=== PATIENT | female | born 1990 | race Caucasian/White ===

== ENCOUNTER 2017-10-29 13:55 | Emergency (ER) | payer OTHER ==
[~2017-10-29] VITALS: Ht 162.6 cm; Wt 70.2 kg
[2017-10-29 13:59] VITALS: BP 136/80; PULSE 94; RESP 18; TEMP 98.5; O2SAT 98
[2017-10-29] MEDS ORDERED: IBUPROFEN 600 MG TAB PO ONE (15:00)
[2017-10-29] MEDS ORDERED: ONDANSETRON ODT 4 MG TAB PO ONE (15:00)
--- NOTE | 2017-10-29 15:08 | PD ---
HPI Chief Complaint: Cold / Flu Symptoms Time Seen by Provider: 14:52 Travel History International Travel<30 days: No Contact w/Intl Traveler<30days: No Traveled to known affect area: No History of Present Illness HPI Patient is a 27-year-old female who comes in complaining of cough, body aches, fever. She says she has been sick since last , got worse over the weekend, but she is starting to feel little bit better. She says she is still coughing a lot and has nausea. She denies any vomiting. She denies any abdominal pain. She says she has occasional headaches, but those seem to be improving. She has tried Tylenol Cold and flu as well as [place] without relief of her symptoms. She does report multiple sick contacts. Severity is mild to moderate. [facility]LY [facility] Past Medical History Medical History: Denies Significant Hx ?: Not LMP: 10/17/17 Past Surgical History Surgical History: No Previous Surgery Social History Alcohol Use: Yes (soc) Tobacco Use: Yes (1 ppd) Substance Use: No Allergies-Medications (Allergen,Severity, Reaction): Coded Allergies: Penicillins (Verified Allergy, Unknown, TOLD CHILD, 10/29/17) cefaclor (Verified Allergy, Unknown, TOLD CHILD, 10/29/17) Review of Systems General / Constitutional: Positive: Fever, Chills HENT: Positive: Headaches, Congestion Cardiovascular: No: Chest Pain or Discomfort Respiratory: Positive: Cough Gastrointestinal: Positive: Nausea, No: Vomiting, Abdominal Pain Musculoskeletal: Positive: Myalgias, No: Edema Skin: No Rash Neurologic: No: Weakness, Dizziness Physical Exam Narrative GENERAL: Awake and alert, in no acute distress. SKIN: Focused skin assessment warm/dry. HEAD: Atraumatic. Normocephalic. EYES: Pupils equal and round. No scleral icterus. ENT: Mucous membranes pink and moist. CARDIOVASCULAR: Regular rate and rhythm. No murmur appreciated. RESPIRATORY: No accessory muscle use. Clear to auscultation. Breath sounds equal bilaterally. GASTROINTESTINAL: Abdomen soft, non-tender, nondistended. MUSCULOSKELETAL: No obvious deformities. No clubbing. No cyanosis. No edema. NEUROLOGICAL: Awake and alert. No obvious cranial nerve deficits. Motor grossly within normal limits. Normal speech. Data Data Last Documented VS Vital Signs Date Time Temp Pulse Resp B/P (MAP) Pulse Ox O2 Delivery O2 Flow Rate FiO2 10/29/17 13:59 98.5 94 18 136/80 (98) 98 Orders Orders Chest, Pa & Lat (10/29/17 ) Influenzae A/B Antigen (10/29/17 14:59) Ibuprofen (Motrin) (10/29/17 15:00) Ondansetron Odt (Zofran Odt) (10/29/17 15:00) MDM Medical Decision Making Medical Screen Exam Complete: Yes Emergency Medical Condition: Yes Medical Record Reviewed: Yes Differential Diagnosis URI versus pneumonia versus influenza Narrative Course Patient is a 27-year-old female who comes in complaining of cough, fever, body aches. Exam shows no acute abnormalities. Chest x-ray performed. Swab sent to check for influenza. Given ibuprofen and Zofran. She is asking for a work note. Flu swab was negative. Chest x-ray shows no acute abnormalities. Patient advised to drink plenty of fluids, take Tylenol or ibuprofen as needed for pain. Return to the ED as needed for any worsening symptoms. Diagnosis Primary Impression: Viral illness Patient Instructions: General Instructions, Viral Syndrome (ED) Additional Instructions: Take Tylenol or ibuprofen as needed for pain or fever. Drink plenty of fluids. Follow-up with a primary care doctor. Return to the ED as needed for any worsening symptoms. Disposition: 01 DISCHARGE HOME Condition: Stable Alise Smiley MD Oct 29, 2017 15:07
--- NOTE | 2017-10-29 16:08 | RADRPT ---
EXAM DATE/TIME: 10/29/2017 15:47 [facility] COMPARISON: No previous studies available for comparison. INDICATIONS : Cough and shortness of breath for a few days. MEDICAL HISTORY : None. SURGICAL HISTORY : None. ENCOUNTER: Initial ACUITY: 2 days PAIN SCORE: 0/10 LOCATION: Bilateral chest FINDINGS: PA and lateral views of the chest demonstrate the lungs to be symmetrically aerated without evidence of mass, infiltrate or effusion. The cardiomediastinal contours are unremarkable. Osseous structure s are intact. CONCLUSION: 1. No acute cardiopulmonary findings. Noah Sahu MD on October 29, 2017 at 16:05 Board Certified Radiologist. This report was verified electronically.
== END 2017-10-29 16:34 | disposition home or self-care (01) ==
LOC: PHEFT 13:55
DX: B34.9 Viral infection, unspecified (principal); F17.210 Nicotine dependence, cigarettes, uncomplicated
CPT/HCPCS: 71046; 87804; 99284